=== PATIENT | male | born 1990 | race Caucasian/White ===

== ENCOUNTER → 2025-04-10 | Outpatient (CLI) | payer OTHER ==
[~2025-04-10] MED LIST: HYDROCHLOROTHIAZIDE PO; LISINOPRIL PO; LYRI75CA PO; NEUR600T PO; NEXI20CA PO; NORCOBULK PO; TIZA4TAB3 PO; WELL75TA PO; gabapentin PO; methocarbamol PO; ranitidine PO
== END ==
LOC: M SLEEP 20:00
PROVIDERS: ATTEND Internal Medicine
DX: G47.33 Obstructive sleep apnea (adult) (pediatric) (principal)